=== PATIENT | female | born 1985 | race Caucasian/White ===

== ENCOUNTER 2021-08-17 11:29 | Emergency (ER) | payer MEDICAID, SELFPAY ==
[2021-08-17 11:42] VITALS: BP 116/71; PULSE 84; RESP 18; TEMP 36.7; O2SAT 99
--- NOTE | 2021-08-17 11:53 | ED.ALLEREA ---
HPI - Allergic Reaction General Chief complaint: Allergic Reaction Stated complaint: Allergic Reaction Time Seen by Provider: 08/17/21 11:40 Source: patient Mode of arrival: ambulatory Limitations: no limitations History of Present Illness HPI narrative: This is a 36 year old female that presents to the ER for an allergic reaction. Reports she is allergic to cinnamon. 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 Some went on her left arm and she reports she inhaled some of the powder. She started to feel as though her throat was swelling. This was about an hour prior to arrival. She took 50mg of Benadryl and her epi-pen. Denies chest pain, vomiting or diarrhea. Related Data Allergies Allergy/AdvReac Type Severity Reaction Status Date / Time cinnamon Allergy Anaphylaxis Verified 08/17/21 11:48 Review of Systems Review of Systems: CONSTITUTIONAL: Denies fever SKIN: Reports itching. Denies rash All systems reviewed & are unremarkable except as noted in HPI and below PMFSH Past Medical History Medical History (Updated 08/17/21 @ 14:22 by Catrina Porras PA-C) History of food allergy Social History Social History (Updated 08/17/21 @ 11:57 by Catrina Porras PA-C) Substance use: never Exam Narrative: GENERAL: Well-appearing, well-nourished, and in no acute distress. HEAD: Normocephalic, atraumatic. EYES: EOMI. ENT: Mucous membranes moist. Oropharynx without tonsillar hypertrophy exudate or other lesions. No throat or tongue swelling noted NECK: Supple. No adenopathy or masses. CHEST: Clear to auscultation. No respiratory distress. No wheezes rales or rhonchi HEART: Regular rate and rhythm. No murmur heard. Normal peripheral pulses. EXTREMITIES: Normal range of motion. No edema. SKIN: Warm, dry, no rash. NEURO: No focal deficits. Alert and oriented x3. PSYCH: Normal mood and affect Course Vital Signs Vital signs: Vital Signs Temperature 98.0 F 08/17/21 11:42 Pulse Rate 84 08/17/21 11:42 Respiratory Rate 18 08/17/21 11:42 Blood Pressure 116/71 08/17/21 11:42 Pulse Oximetry 99 08/17/21 11:42 Oxygen Delivery Room Air 08/17/21 11:42 Temperature 98.0 F 08/17/21 11:42 Pulse Rate 78 08/17/21 12:33 Respiratory Rate 18 08/17/21 12:33 Blood Pressure 104/72 08/17/21 12:33 Pulse Oximetry 99 08/17/21 12:33 Oxygen Delivery Room Air 08/17/21 11:42 MDM - Allergic Reaction MDM Narrative Medical decision making narrative: Patient presents to the emergency department for an allergic reaction. Reportedly is allergic to cinnamon with history of anaphylaxis. Patient had contact with someone at work. Had already taken Benadryl and her EpiPen. No notable mouth or throat swelling on arrival. Her vitals have remained stable. Lungs are clear on exam. Given a dose of Pepcid and Solu-Medrol in the ED. She has remained stable with relief of her symptoms. Will be given prescription for her EpiPen. Instructed on continued antihistamines. She is to follow-up with her primary care doctor. She was given warnings to return to the ER Critical Care Time Critical Care Time Critical Care Time: No Discharge Plan Discharge Clinical Impression: Allergic reaction Patient Disposition: Home, Self-Care Condition: Stable Instructions: Anaphylaxis (ED), General Allergic Reaction (ED) Additional Instructions: Return to the emergency department if you experience fever, difficulty breathing, trouble swallowing, or any other symptoms that are concerning to you Take a Pepcid and Claritin daily. Take methylprednisolone tomorrow, you were given a dose today. Benadryl and your epi-pen as needed Follow-up with primary care doctor Prescriptions: New epinephrine 0.3 mg/0.3 mL auto-injector 0.3 mg IM Q5-15M PRN (Reason: anaphylaxis) Qty: 2 0RF Rx Instructions: do not exceed 3 doses per episode methylprednisolone 32 mg tablet 80
[2021-08-17] MEDS: FAMOTIDINE 20 MG/2 ML VIAL IV PUSH (11:58)
[2021-08-17] MEDS: methylPREDNISolone SOD SUCC 125 MG VIAL IV PUSH (11:58)
[2021-08-17 12:33] VITALS: BP 104/72; PULSE 78; RESP 18; O2SAT 99
[2021-08-17 14:48] VITALS: BP 102/56; PULSE 89; RESP 18; O2SAT 99
== END 2021-08-17 14:51 | disposition home or self-care (01) ==
PROVIDERS: Emergency Provider Emergency Medicine
DX: T78.1XXA Other adverse food reactions, not elsewhere classified, initial encounter (principal); R22.1 Localized swelling, mass and lump, neck
CPT/HCPCS: 96374; 96375; 99284; J2930